=== PATIENT | male | born 1960 | race Caucasian/White ===

== ENCOUNTER → 2023-05-19 10:22 | Outpatient (REF) | payer BC, SELFPAY | LOC: RCS 10:22 | PROVIDERS: ATTENDING PHYSICIAN Internal Medicine Cardiovascular Disease; FAMILY PHYSICIAN Family Medicine | DX: R93.1 Abnormal findings on diagnostic imaging of heart and coronary circulation (principal) | CPT/HCPCS: 93017 ==

== ENCOUNTER → 2024-02-19 08:29 | Outpatient (REF) | payer BC, SELFPAY | LOC: RAD 08:29 | PROVIDERS: ATTENDING PHYSICIAN Physician Assistant Medical | DX: I83.812 Varicose veins of left lower extremity with pain (principal) | CPT/HCPCS: 93971 ==

== ENCOUNTER 2024-10-07 06:22 | Day surgery (SDC) | payer BC, SELFPAY | END 2024-10-07 10:31 | disposition home or self-care (01) | LOC: GI 06:22 | PROVIDERS: ATTENDING PHYSICIAN Internal Medicine Gastroenterology | DX: Z12.11 Encounter for screening for malignant neoplasm of colon (principal); K55.20 Angiodysplasia of colon without hemorrhage; K57.30 Diverticulosis of large intestine without perforation or abscess without bleeding; K64.8 Other hemorrhoids; Z86.0100 Personal history of colon polyps, unspecified | CPT/HCPCS: G0105 ==